=== PATIENT | male | born 1945 | race Caucasian/White ===

== ENCOUNTER 2016-11-26 05:21 | Inpatient (IN) | payer OTHER ==
[2016-11-26] MEDS ORDERED: LIDOCAINE 1% 5 ML SDV ONE (05:55)
[2016-11-26] MEDS ORDERED: ceFAZolin 2 GM/DEXTROSE 100 ML IV ONE (06:00)
[2016-11-26] MEDS ORDERED: ceFAZolin 2 GM in D5W 100 ML IV ONE (06:00)
[2016-11-26] MEDS ORDERED: fentaNYL 100 MCG/2 ML INJ IT ONE ×2 (06:00→14:00)
[2016-11-26] MEDS ORDERED: morphINE PF 5 MG/10 ML INJ IT ONE ×2 (06:00→14:00)
[2016-11-26] MEDS ORDERED: LIDOCAINE 1% 5 ML SDV ID PRN (06:39)
[2016-11-26] MEDS ORDERED: LR 1,000 ML IV ONE (06:39)
[2016-11-26] MEDS ORDERED: BUPIVACAINE 0.25% 30 ML SDV ONE (06:42)
[2016-11-26] MEDS ORDERED: BUPIVACAINE/EPI 0.25% 30 ML SDV ONE (06:42)
[2016-11-26] MEDS ORDERED: BACITRACIN 50,000 UNITS/10 ML SYR IRR ONE ×2 (06:42→11:21)
[2016-11-26] MEDS ORDERED: THROMBIN (RECOMBINANT) 5,000 UNIT VIAL TP ONE (06:42)
[2016-11-26 06:52] LABS: APTT 26.4 SEC (23.0-38.0); INR 1.15 (0.83-1.16); PROTIME(PATIENT) 14.6 SEC (12.0-15.0)
[2016-11-26] MEDS ORDERED: PROPOFOL/EMULSION 500 MG/50 ML BOTTLE IV ONE ×4 (07:04→12:31)
[2016-11-26] MEDS ORDERED: REMIFENTANIL HCL 1 MG VIAL ONE ×2 (07:04→10:42)
[2016-11-26] MEDS ORDERED: fentaNYL 250 MCG/5 ML INJ ONE (07:04)
[2016-11-26] MEDS ORDERED: LIDOCAINE 2% 5 ML SDV ONE (07:09)
[2016-11-26] MEDS ORDERED: ROCURONIUM 50 MG/5 ML VIAL ONE (07:10)
[2016-11-26] MEDS ORDERED: CITRATE DEXTROSE SOLN 500 ML BAG ONE ×2 (07:11→11:37)
[2016-11-26] MEDS ORDERED: MIDAZOLAM 2 MG/2 ML VIAL ONE (07:11)
[2016-11-26] MEDS ORDERED: PROPOFOL 200 MG/20 ML VIAL ONE (07:13)
[2016-11-26 07:26] LABS: ANION GAP 9 mEq/L (8-16); CARBON DIOXIDE 25 mEq/l (22-31); CHLORIDE 109 mEq/L (97-110); CREATININE 0.8 mg/dL (0.7-1.3); GLOMERULAR FILTRATION RATE > 60; GLUCOSE 84 mg/dL (70-100); POTASSIUM 4.3 mEq/L (3.5-5.2); SODIUM 143 mEq/L (134-144)
[2016-11-26] MEDS ORDERED: PHENYLEPHRINE 0.5% NASAL 15 ML SPRAY ONE (07:53)
[2016-11-26] MEDS ORDERED: DEXAMETHASONE 4 MG/ML VIAL ONE (08:07)
[2016-11-26 09:17] LABS: HEMATOCRIT 30.1 % (40.0-51.0); HEMOGLOBIN 10.6 g/dL (13.7-17.5)
[2016-11-26] MEDS ORDERED: PHENYLEPHRINE 10 MG/ML SDV ONE (09:21)
[2016-11-26] MEDS ORDERED: THROMBIN (RECOMBINANT) 20,000 UNIT VIAL TP ONE (10:35)
[2016-11-26] MEDS ORDERED: ceFAZolin 1 GM VIAL ONE (11:08)
[2016-11-26] MEDS ORDERED: morphINE PF 5 MG/10 ML INJ ONE (11:21)
[2016-11-26] MEDS ORDERED: fentaNYL 100 MCG/2 ML INJ ONE (11:21)
[2016-11-26] MEDS ORDERED: ONDANSETRON 4 MG/2 ML VIAL ONE (12:14)
[2016-11-26] MEDS ORDERED: ONDANSETRON 4 MG/2 ML VIAL IVP PRN (13:00)
[2016-11-26] MEDS ORDERED: DIAZEPAM 10 MG/2 ML SYR IVP PRN (13:00)
[2016-11-26] MEDS ORDERED: LACTULOSE 20 GM/30 ML UDCUP PO PRN (13:00)
[2016-11-26] MEDS ORDERED: diphenhydrAMINE 25 MG CAP PO PRN (13:00)
[2016-11-26] MEDS ORDERED: MAGNESIUM HYDROXIDE 30 ML UDCUP PO PRN (13:00)
[2016-11-26] MEDS ORDERED: NALOXONE HCL 0.4 MG/ML INJ IVP PRN (13:00)
[2016-11-26] MEDS ORDERED: DIAZEPAM 5 MG TAB PO PRN (13:00)
[2016-11-26] MEDS ORDERED: BISACODYL 10 MG SUPP PR PRN (13:00)
[2016-11-26] MEDS ORDERED: ONDANSETRON DISINTEGRATING 4 MG TAB PO PRN (13:00)
[2016-11-26] MEDS ORDERED: HYDROmorphONE/DILAUDID 6 MG/30 ML PCA IV PRN (13:00)
--- NOTE | 2016-11-26 13:05 | POSTOPPROG ---
Post Op Note Date of Operation: 11/26/16 Surgeon: Burton Hyman Medical Educator: Jaylon Anesthesiologist: Katie Anesthesia: GET(General Endotracheal) Pre-op Diagnosis: lumbar DJD/stenosis Post-op Diagnosis: same Indication: low back pain, right leg pain, weakness Procedure: L2-S1 fusion with L2/3, L5/S1 TLIF Findings: DJD/stenosis Inf/Abcess present in the surg proc area at time of surgery?: No EBL: 500-1000 (600 ml EBL) Complications: None Drains: Carrillo Moe (DAVID x 1)
--- NOTE | 2016-11-26 13:07 | SOAPPROG ---
SOAP Progress Note Assessment/Plan: Assessment: 71 yo M sp L2-S1 fusion with L2/3, L5/S1 TLIF Plan: stable PT/OT x-rays 11/27 DAVID x 1 lovenox starts 11/27 please call with neuro changes 11/26/16 13:05 Subjective: + back pain, no leg pain Objective: Laboratory Results 11/26/16 08:55 11/26/16 06:36 PT 14.6 SEC (12.0-15.0) 11/26/16 06:36 INR 1.15 (0.83-1.16) 11/26/16 06:36 awake, alert PERRL, EOMI, no facial droo 5/5 except right DF 0/5, right quads/psoas 4/5 + light touch ICD10 Worksheet Patient Problems: Problems Problem Status Diagnosed Fusion of lumbar spine Acute Cervical stenosis of spinal canal Acute - ICD10 Problem Qualifiers (1) Fusion of lumbar spine
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
[2016-11-26] MEDS: NS W/ 20 KCl/L 1,000 ML IV SCH (16:16)
[2016-11-26] MEDS: POLYETHYLENE GLYCOL 3350 17 GM PKT PO SCH ×2 (16:36→22:29)
[2016-11-26 16:50] LABS: HEMATOCRIT 30.5 % (40.0-51.0); HEMOGLOBIN 10.4 g/dL (13.7-17.5)
[2016-11-26 17:05] LABS: ANION GAP 9 mEq/L (8-16); CARBON DIOXIDE 24 mEq/l (22-31); CHLORIDE 107 mEq/L (97-110); CREATININE 0.9 mg/dL (0.7-1.3); GLOMERULAR FILTRATION RATE > 60; GLUCOSE 108 mg/dL (70-100); POTASSIUM 5.3 mEq/L (3.5-5.2); SODIUM 140 mEq/L (134-144)
--- NOTE | 2016-11-26 17:19 | DX ---
Intraoperative fluoroscopy History: Lumbar fusion surgery L2-S1 Dose = 26.5 mGy Findings: A single spot film demonstrates bilateral transpedicular screws at all levels between L2 an d S1. There is a spinous process clamp at L2-L3. Impression: Good intraoperative position of bilateral transpedicular screws.
[2016-11-26] MEDS: morphINE SR 15 MG TAB PO SCH (20:51)
[2016-11-26] MEDS: SENNOSIDES/DOCUSATE SODIUM TAB PO SCH (20:52)
[2016-11-26] MEDS: FAMOTIDINE 20 MG/NACL 50 ML IV SCH (20:52)
[2016-11-27 05:08] LABS: % IMMATURE GRANULYOCYTES 0.9 % (0.0-1.1); ABSOLUTE IMMATURE GRANULOCYTES 0.08 10^3/uL (0.00-0.10); ABSOLUTE NRBC COUNT 0.06 10^3/uL (0-0.01); ADD DIFF? NO; ADD MORPH? NO; ADD SCAN? NO; ATYPICAL LYMPHOCYTE FLAG 50 (0-99); FRAGMENT RBC FLAG 20 (0-99); HEMATOCRIT 25.8 % (40.0-51.0); HEMOGLOBIN 8.5 g/dL (13.7-17.5); LEFT SHIFT FLG 0 (0-99); LIPEMIA HEMOLYSIS FLAG 80 (0-99); MEAN CELL HEMOGLOBIN 32.9 pg (27.9-34.1); MEAN CELL HEMOGLOBIN CONCENTR. 32.9 g/dL (32.4-36.7); NRBC-AUTO% 0.7 % (0.0-0.2); PLATELET CLUMPS FLAG 10 (0-99); PLATELET COUNT 165 10^3/uL (150-400); RED BLOOD CELL COUNT 2.58 10^6/uL (4.40-6.38); RED CELL DISTRIBUTION WIDTH 18.3 % (11.5-15.2)
[2016-11-27 05:31] LABS: ANION GAP 5 mEq/L (8-16); CALCIUM 7.9 mg/dL (8.5-10.4); CARBON DIOXIDE 26 mEq/l (22-31); CHLORIDE 108 mEq/L (97-110); CREATININE 0.9 mg/dL (0.7-1.3); GLOMERULAR FILTRATION RATE > 60; GLUCOSE 100 mg/dL (70-100); POTASSIUM 4.9 mEq/L (3.5-5.2); SODIUM 139 mEq/L (134-144)
--- NOTE | 2016-11-27 08:42 | NEUSURGPN ---
Date of Surgery: 11/26/16 Post Op Day: 1 Assessment/Plan: POD#1 sp L2/3 adn L5/S1 TLIF. Chronic right DF weakness. Left DF weakness today Pain well controlled Has some mild right forearm paresthesias without associated weakness Plan: Continue DAVID drain Xrays lumbar spine today Advance activity with PT/OT LSO when out of bed DC planning Follow H/H with repeat CBC Wednesday Subjective: in bed, comfortable. no pain issues overnight. Denies new numbness, tingling or weakness Objective: NEURO: SMITH, sens +LT chronic right DF/EHL weakness - unchnaged left DF weakness4/5 Dressing: reinforced, moderate saturation DAVID: 580ml Catheter Insertion Date: 11/26/16 Neurosurgery Physical Exam - Vitals, I&O, Labs I and O 11/26/16 11/27/16 11/28/16 05:59 05:59 05:59 Intake Total 5300 Output Total 2680 Balance 2620 Weight 106.594 kg Intake: Oral (ml) 1600 IV Intake (ml) 2500 IV Infused (ml) 950 ceFAZolin 2 GM/DEXTROSE 100 100 ml @ 200 mls/hr IV ONCE ONE Rx#:[id number] ceFAZolin 1 GM/DEXTROSE 50 50 ml @ 200 mls/hr IV Q8H [facility] Rx#:[id number] Famotidine 20 mg/NaCl 50 50 ml @ 200 mls/hr IV Q12HRS [facility] Rx#:[id number] NS W/ 20 KCl/L 1,000 ml @ 750 75 mls/hr IV CONT [facility] Rx #:[id number] Autologous Blood (ml) 250 Output: Urine (ml) 1500 Catheter 1500 Estimated Blood Loss (ml) 600 Wound Drainage (ml) 580 Right Back Carrillo Moe 580 Vital Signs Temp Pulse Resp BP Pulse Ox 37 C 76 16 123/57 H 91 L 11/27/16 08:00 11/27/16 08:00 11/27/16 08:00 11/27/16 08:00 11/27/16 08:00 Laboratory Results 11/27/16 04:29 11/27/16 04:29 ICD10 Worksheet Patient Problems: Problems Problem Status Diagnosed Fusion of lumbar spine Acute Cervical stenosis of spinal canal Acute
[2016-11-27] MEDS: ENOXAPARIN 40 MG/0.4 ML SYR SC SCH (09:30)
[2016-11-27] MEDS: FAMOTIDINE 20 MG/NACL 50 ML IV SCH ×2 (09:30→21:06)
[2016-11-27] MEDS: SENNOSIDES/DOCUSATE SODIUM TAB PO SCH ×2 (09:30→21:07)
[2016-11-27] MEDS: POLYETHYLENE GLYCOL 3350 17 GM PKT PO SCH ×3 (09:30→21:31)
[2016-11-27] MEDS: morphINE SR 15 MG TAB PO SCH ×2 (10:38→21:07)
--- NOTE | 2016-11-27 15:00 | DX ---
Lumbar spine upright AP and lateral 1346 hours. History: Follow-up fusion. Findings: Pedicle screws and paraspinal rods are present from L2 through S1 with good alignment. Disk replacement material is present at L2-L3 and at L5-S1. There is bony fusion across the L3-L4 and L4- L5 disk space levels. Moderate intervertebral disk space narrowing with hypertrophic osteophytes is p resent from T10-T11 through L1-L2. There is mild anterior wedging of T11, T12, and L1 segments. This is probably chronic. There are no lytic or sclerotic osseous lesions. Drainage catheter is present ri ght posterior paraspinal soft tissues lower lumbar spine. The patient has had right hemilaminectomy a t L5 level. Impression: 1. Good alignment of pedicle screws and paraspinal rods from L2 through S1. 2. Mild anterior wedging T11, T12, and L1 segments. 3. Moderate degenerative disk disease T10-T11 through L1-L2.
[2016-11-27] MEDS: HYDROmorphONE/DILAUDID 1 MG/ML SYR IVP PRN (20:21)
[2016-11-27] MEDS: ACETAMINOPHEN 325 MG TAB PO PRN (20:25)
[2016-11-27] MEDS: METHOCARBAMOL 750 MG TAB PO PRN (20:25)
[2016-11-27] MEDS: oxyCODONE IR 5 MG TAB PO PRN (20:25)
[2016-11-28] MEDS: METHOCARBAMOL 750 MG TAB PO PRN ×3 (04:30→20:50)
[2016-11-28] MEDS: oxyCODONE IR 5 MG TAB PO PRN ×2 (04:30→15:04)
[2016-11-28] MEDS: HYDROmorphONE/DILAUDID 1 MG/ML SYR IVP PRN (04:45)
[2016-11-28 04:59] LABS: HEMATOCRIT 21.1 % (40.0-51.0); MEAN CELL HEMOGLOBIN 32.9 pg (27.9-34.1); MEAN CELL HEMOGLOBIN CONCENTR. 33.2 g/dL (32.4-36.7); MEAN CELL VOLUME 99.1 fL (81.5-99.8); RED BLOOD CELL COUNT 2.13 10^6/uL (4.40-6.38); RED CELL DISTRIBUTION WIDTH 17.5 % (11.5-15.2)
[2016-11-28] MEDS: SENNOSIDES/DOCUSATE SODIUM TAB PO SCH ×2 (08:25→20:50)
[2016-11-28] MEDS: POLYETHYLENE GLYCOL 3350 17 GM PKT PO SCH ×3 (08:26→20:50)
[2016-11-28] MEDS: FAMOTIDINE 20 MG TAB PO SCH ×2 (08:26→20:50)
[2016-11-28] MEDS: ENOXAPARIN 40 MG/0.4 ML SYR SC SCH (08:26)
[2016-11-28] MEDS: morphINE SR 15 MG TAB PO SCH ×2 (08:27→20:49)
--- NOTE | 2016-11-28 11:40 | NEUSURGPN ---
Date of Surgery: 11/27/16 Post Op Day: 1 Assessment/Plan: Assessment/Plan: POD#2 sp L2/3 adn L5/S1 TLIF. Chronic right DF weakness. mild Left DF weakness today Pain well controlled Plan: Continue DAVID drain, output 580 Xrays lumbar spine show intact hardware and good alignment Advance activity with PT/OT LSO when out of bed DC planning H/H low at 7/21, but he does not seem to be symptomatic Subjective: some moderate pain Objective: NEURO: SMITH, sens +LT chronic right DF/EHL weakness - unchnaged left DF weakness4/5 stable Catheter Insertion Date: 11/27/16 - Physician Patient Seen by DrFatmata: Allyson Neurosurgery Physical Exam - Vitals, I&O, Labs I and O 11/27/16 11/28/16 11/29/16 05:59 05:59 05:59 Intake Total 5300 1050 200 Output Total 2680 1150 50 Balance 2620 -100 150 Weight 106.594 kg Intake: Oral (ml) 1600 500 200 IV Intake (ml) 2500 IV Infused (ml) 950 550 ceFAZolin 2 GM/DEXTROSE 100 100 ml @ 200 mls/hr IV ONCE ONE Rx#:[id number] ceFAZolin 1 GM/DEXTROSE 50 50 ml @ 200 mls/hr IV Q8H [facility] Rx#:[id number] Famotidine 20 mg/NaCl 50 50 50 ml @ 200 mls/hr IV Q12HRS [facility] Rx#:[id number] NS W/ 20 KCl/L 1,000 ml @ 750 500 75 mls/hr IV CONT [facility] Rx #:[id number] Autologous Blood (ml) 250 Output: Urine (ml) 1500 900 Catheter 1500 Toilet 900 Estimated Blood Loss (ml) 600 Wound Drainage (ml) 580 250 50 Right Back Carrillo Moe 580 250 50 Other: Intake Quantity Yes Sufficient Output Comment Toilet straight cath Number of Voids Toilet 1 Number of Stools Toilet 1 Bladder Scan Volume (ml) Toilet 355 Vital Signs Temp Pulse Resp BP Pulse Ox 36.9 C 78 18 114/58 L 90 L 11/28/16 07:49 11/28/16 07:49 11/28/16 07:49 11/28/16 07:49 11/28/16 07:49 Laboratory Results 11/28/16 04:23 11/27/16 04:29 ICD10 Worksheet Patient Problems: Problems Problem Status Diagnosed Fusion of lumbar spine Acute Cervical stenosis of spinal canal Acute
[2016-11-28] MEDS: NS W/ 20 KCl/L 1,000 ML IV SCH (20:50)
[2016-11-29] MEDS: SENNOSIDES/DOCUSATE SODIUM TAB PO SCH ×2 (08:08→19:55)
[2016-11-29] MEDS: morphINE SR 15 MG TAB PO SCH ×2 (08:08→19:56)
[2016-11-29] MEDS: FAMOTIDINE 20 MG TAB PO SCH ×2 (08:09→19:56)
[2016-11-29] MEDS: ENOXAPARIN 40 MG/0.4 ML SYR SC SCH (08:09)
[2016-11-29] MEDS: POLYETHYLENE GLYCOL 3350 17 GM PKT PO SCH ×3 (08:09→20:01)
[2016-11-29] MEDS: METHOCARBAMOL 750 MG TAB PO PRN ×2 (08:09→13:40)
[2016-11-29 08:26] LABS: HEMATOCRIT 20.6 % (40.0-51.0); HEMOGLOBIN 7.1 g/dL (13.7-17.5); MEAN CELL HEMOGLOBIN 34.1 pg (27.9-34.1); MEAN CELL HEMOGLOBIN CONCENTR. 34.5 g/dL (32.4-36.7); RED BLOOD CELL COUNT 2.08 10^6/uL (4.40-6.38); RED CELL DISTRIBUTION WIDTH 17.1 % (11.5-15.2)
--- NOTE | 2016-11-29 10:30 | NEUSURGPN ---
Date of Surgery: 11/26/16 Post Op Day: 3 Assessment/Plan: Assessment/Plan: POD#3 sp L2/3 adn L5/S1 TLIF. Chronic right DF weakness. mild Left DF weakness today Pain well controlled Plan: Continue DAVID drain, output 95 Xrays lumbar spine show intact hardware and good alignment Advance activity with PT/OT LSO when out of bed DC planning for rehab H/H stable at 7.1/20.6, but he does not seem to be symptomatic Subjective: no major complaints, does have back pain Objective: AAOx3 legs full strength except chronic DF weakness sensation intact wound c/d/i Catheter Insertion Date: 11/27/16 - Physician Patient Seen by : Yenni Neurosurgery Physical Exam - Vitals, I&O, Labs I and O 11/28/16 11/29/16 11/30/16 05:59 05:59 05:59 Intake Total 1050 890 200 Output Total 1150 295 Balance -100 595 200 Intake: Oral (ml) 500 650 200 IV Infused (ml) 550 240 Famotidine 20 mg/NaCl 50 50 ml @ 200 mls/hr IV Q12HRS [facility] Rx#:[id number] NS W/ 20 KCl/L 1,000 ml @ 500 240 75 mls/hr IV CONT [facility] Rx #:[id number] Output: Urine (ml) 900 200 Toilet 900 200 Wound Drainage (ml) 250 95 Right Back Carrillo Moe 250 95 Other: Intake Quantity Yes Sufficient Output Comment Toilet straight cath Number of Voids Toilet 1 Number of Stools Toilet 1 Bladder Scan Volume (ml) Toilet 355 Vital Signs Temp Pulse Resp BP Pulse Ox 36.7 C 77 20 105/57 L 96 11/29/16 07:57 11/29/16 07:57 11/29/16 07:57 11/29/16 07:57 11/29/16 07:57 Laboratory Results 11/29/16 08:05 11/27/16 04:29 ICD10 Worksheet Patient Problems: Problems Problem Status Diagnosed Fusion of lumbar spine Acute Cervical stenosis of spinal canal Acute
[2016-11-29] MEDS: oxyCODONE IR 5 MG TAB PO PRN (13:40)
[2016-11-30] MEDS: oxyCODONE IR 5 MG TAB PO PRN ×3 (06:00→23:02)
[2016-11-30] MEDS: FAMOTIDINE 20 MG TAB PO SCH ×2 (10:15→19:35)
[2016-11-30] MEDS: ENOXAPARIN 40 MG/0.4 ML SYR SC SCH (10:15)
[2016-11-30] MEDS: SENNOSIDES/DOCUSATE SODIUM TAB PO SCH ×2 (10:16→19:35)
[2016-11-30] MEDS: morphINE SR 15 MG TAB PO SCH ×2 (10:16→19:35)
[2016-11-30] MEDS: POLYETHYLENE GLYCOL 3350 17 GM PKT PO SCH ×3 (11:15→19:36)
--- NOTE | 2016-11-30 11:27 | SOAPPROG ---
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 Objective: Vital Signs Temp Pulse Resp BP Pulse Ox 36.4 C 67 16 122/61 H 100 11/30/16 07:33 11/30/16 07:33 11/30/16 07:33 11/30/16 07:33 11/30/16 07:33 Laboratory Results 11/29/16 08:05 11/27/16 04:29 11/29/16 11/30/16 12/01/16 05:59 05:59 05:59 Intake Total 890 800 Output Total 295 365 Balance 595 435 PT 14.6 SEC (12.0-15.0) 11/26/16 06:36 INR 1.15 (0.83-1.16) 11/26/16 06:36 AAOX4, +FC PERRL, EOMI, no facial droop 5/5 except right DF 0/5 + light touch C/D/I ICD10 Worksheet Patient Problems: Problems Problem Status Diagnosed Fusion of lumbar spine Acute Cervical stenosis of spinal canal Acute - ICD10 Problem Qualifiers (1) Fusion of lumbar spine
[2016-11-30] MEDS: METHOCARBAMOL 750 MG TAB PO PRN (23:02)
[2016-11-30 23:18] VITALS: TEMP 98.2
[2016-12-01 07:39] VITALS: BP 145/76; PULSE 55; RESP 116; O2SAT 92
--- NOTE | 2016-12-01 07:46 | SOAPPROG ---
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 Objective: Vital Signs Temp Pulse Resp BP Pulse Ox 36.8 C 55 L 116 H 145/76 H 92 12/01/16 07:38 12/01/16 07:38 12/01/16 07:38 12/01/16 07:38 12/01/16 07:38 Laboratory Results 11/29/16 08:05 11/27/16 04:29 11/30/16 12/01/16 12/02/16 05:59 05:59 05:59 Intake Total 800 1000 Output Total 365 52 Balance 435 948 PT 14.6 SEC (12.0-15.0) 11/26/16 06:36 INR 1.15 (0.83-1.16) 11/26/16 06:36 AAOX4, +FC PERRL, EOMI, no facial droop 5/5 except right DF 0/5 + light touch C/D/I ICD10 Worksheet Patient Problems: Problems Problem Status Diagnosed Fusion of lumbar spine Acute Cervical stenosis of spinal canal Acute - ICD10 Problem Qualifiers (1) Fusion of lumbar spine
[2016-12-01] MEDS: POLYETHYLENE GLYCOL 3350 17 GM PKT PO SCH (08:51)
[2016-12-01] MEDS: FAMOTIDINE 20 MG TAB PO SCH (08:51)
[2016-12-01] MEDS: ENOXAPARIN 40 MG/0.4 ML SYR SC SCH (08:51)
[2016-12-01] MEDS: morphINE SR 15 MG TAB PO SCH (08:51)
[2016-12-01] MEDS: SENNOSIDES/DOCUSATE SODIUM TAB PO SCH (08:51)
[2016-12-01 08:53] LABS: HEMATOCRIT 21.9 % (40.0-51.0); HEMOGLOBIN 7.6 g/dL (13.7-17.5)
[2016-12-01] MEDS: ACETAMINOPHEN 325 MG TAB PO PRN (12:26)
[2016-12-01] MEDS: oxyCODONE IR 5 MG TAB PO PRN (12:30)
--- NOTE | 2016-12-01 13:41 | PDIAF ---
- Diagnosis Code Status: Full Code - Medication Management Discharge Medications: Medications to Continue on Transfer Acetaminophen [Tylenol 325mg (*)] 325 - 650 mg PO Q4HRS PRN #0 tab 12/01/16 [ Last Taken Unknown] Enoxaparin [Lovenox 40 MG (*)] 40 mg SC DAILY #0 syr 12/01/16 [Last Taken Unknown] Methocarbamol [Robaxin 750 mg (*)] 750 mg PO QID PRN #0 tab 12/01/16 [Last Taken Unknown] morphINE SR [Ms Contin/Oramorph 15 mg (*)] 15 mg PO BID #0 tab 12/01/16 [Last Taken Unknown] oxyCODONE IR [Oxycodone Ir (*)] 5 mg PO Q3HRS PRN #0 tab 12/01/16 [Last Taken Unknown] Discharge Medications: Refer to the Discharge Home Medication list for PRN reason. - Orders Services needed: Physical Therapy, Occupational Therapy Diet Recommendation: no restrictions on diet Diet Texture: Regular Texture Diet Equipment: LSO brace when out of bed for 8 weeks - Follow Up Care Current Providers and Referrals: [place] STATE,. [Primary Care Provider] -
--- NOTE | 2016-12-09 14:15 | GDS ---
[f rep st] DISCHARGE SUMMARY ADMISSION DIAGNOSIS: Lumbar degenerative joint disease. DISCHARGE DIAGNOSIS: Status post L2-S1 fusion with an L2-3 and L5-S1 transforaminal lumbar interbody fusion. HISTORY AND PHYSICAL: Please see admission history and physical. COURSE: Patient is a 71-year-old male, who presented with low back pain, right leg pain and weakness . The patient had previous lumbar surgery. He was taken to the operating room on 11/26/2016, where he underwent an L2-S1 posterior instrumentation and fusion with an L2-3 and L5-S1 transforaminal lumb ar interbody fusion. There were no intraoperative complications, and he was admitted to the floor fo r observation. On the floor, he was tolerating a regular diet and his pain was controlled with p.o. pain medications. The patient was discharged to inpatient rehab on 12/01/2016. Patient was discharg ed with lumbar fusion instructions and recommended he return for a neurosurgical followup appointment in approximately 1-2 weeks. /[id number]/MODL
== END 2016-12-01 16:38 | DRG 460 ==
LOC: F3N 05:21
PROVIDERS: ADMIT Neurological Surgery; ATTEND Neurological Surgery
PROC: 01NR0ZZ Release Sacral Nerve, Open Approach (ICD-10-PCS; principal; 2016-11-26 07:15)
PROC: 0SG30J1 Fusion of Lumbosacral Joint with Synthetic Substitute, Posterior Approach, Posterior Column, Open Approach (ICD-10-PCS; principal; 2016-11-26 07:15)
PROC: 3E0U0GB Introduction of Recombinant Bone Morphogenetic Protein into Joints, Open Approach (ICD-10-PCS; principal; 2016-11-26 07:15)
PROC: 0SG30AJ Fusion of Lumbosacral Joint with Interbody Fusion Device, Posterior Approach, Anterior Column, Open Approach (ICD-10-PCS; principal; 2016-11-26 07:15)
PROC: 0SG10AJ Fusion of 2 or more Lumbar Vertebral Joints with Interbody Fusion Device, Posterior Approach, Anterior Column, Open Approach (ICD-10-PCS; principal; 2016-11-26 07:15)
PROC: 0SG10J1 Fusion of 2 or more Lumbar Vertebral Joints with Synthetic Substitute, Posterior Approach, Posterior Column, Open Approach (ICD-10-PCS; principal; 2016-11-26 07:15)
PROC: 00NY0ZZ Release Lumbar Spinal Cord, Open Approach (ICD-10-PCS; principal; 2016-11-26 07:15)
DX: M47.27 Other spondylosis with radiculopathy, lumbosacral region (principal)
CPT/HCPCS: 86905-90; 97116-GP; 97161-GP; 97165-GO; 97530-GP; 97535-GO; C1713; J0690; J1100; J1170; J1650; J2250; J2274; J2370; J2405; J2704; J3010; J7060; P9016

== ENCOUNTER 2016-12-09 16:00 | Inpatient (IN) | payer OTHER ==
--- NOTE | 2016-12-09 17:16 | GHP ---
[f rep st] PREOP HISTORY AND PHYSICAL DATE OF ADMISSION: 12/09/2016 CHIEF COMPLAINT: Purulent drainage from lumbar incision. HISTORY OF PRESENT ILLNESS: The patient is a pleasant 71-year-old male, who underwent an L3 through L5 exploration of fusion with right-sided L2-3 and L5- S1 far lateral decompression, followed by an L2 through S1 instrumentation and fusion with L2-3 and L5-S1 transforaminal lumbar interbody fusions on November. Postoperatively, the patient was transferred to [facility] where he was maintained until earlier today, when we were contacted by the staff at [facility] who reported he was having drainage from his incision. The patient was immediately transported from [facility] to our clinic today for evaluation. In clinic, the patient was found to have purulent drainage from his incision. This was cultured and sent for Gram stain and culture to the [facility] lab. The patient states that he is not having any worsening back or leg pain, however he has not been feeling well for the past few days and reports that his incision has been draining for 2 or 3 days. Currently, the patient reports fevers and chills and is shaking from chills currently in clinic. He denies any bowel or bladder issues or any lower extremity weakness. ALLERGIES: Etomidate. CURRENT MEDICATIONS: 1. Dulcolax suppository 10 mg rectal daily. 2. Polyethylene glycol 17 g p.o. as needed. 3. Morphine 15 mg tablets p.o. twice daily. 4. Methocarbamol 750 mg 1 tablet 4 times a day. 5. Oxycodone 5 mg, 1 every 3 hours as needed for pain. 6. Iron 325 mg once daily. 7. Vitamin C 500 mg daily. 8. Zofran 4 mg tablets every 4 hours as needed for nausea. 9. Mi-acid 200 mg/200 mg/20 mg/per 5 mL oral suspension 4 times a day. 10. Tylenol 500 mg 3 times a day. 11. Prilosec 20 mg daily. 12. Lovenox 40 mg subcu daily at 8:00 a.m. SOCIAL HISTORY: The patient is an ex-cigarette smoker. He does not drink alcohol. The patient lives in [place], [place]. REVIEW OF SYSTEMS: CONSTITUTIONAL: Positive for chills, rigors, fatigue, fever and malaise. GI: Positive for nausea. Negative for bowel or bladder incontinence. He has not had any chest pain. Otherwise negative other than what is mentioned in the HPI. NEUROLOGIC EXAM: Patient is awake, alert, oriented x4. Cranial nerves 2-12 are intact to gross examination speech is fluent. He has a 45-year history of right iliopsoas weakness and foot drop. He has 5/5 strength in his bilateral upper and left lower extremity otherwise, but has a difficult time standing on his toes bilaterally or on his heels bilaterally due to generalized weakness. Sensation is grossly intact to light touch in the bilateral lower extremities and upper extremities. VITAL SIGNS: Temperature is 98.8, blood pressure is 144/ 65, heart rate is 94. IMPRESSION: The patient is a pleasant 71-year-old gentleman who is 13 days status post L2-S1 fusion with postop wound infection and purulent drainage from his incision. The patient remains neurologically stable with no worsening weakness, tingling or worsening back or leg pain. PLAN: All the above were discussed with the patient in detail today. The patient was seen and examined by Dr. Hyman. At this time, the patient will be direct admitted from our clinic to the hospital. The OR has been notified and the patient will undergo a lumbar wound I and D tonight at approximately 6:00 p.m. Risks and benefits of the surgical procedure were discussed with the patient in detail and any questions were answered to the patient's satisfaction today in clinic. The patient does consent to proceed with a lumbar wound incision and drainage procedure. /[id number]/MODL MTDD
[2016-12-09] MEDS ORDERED: THROMBIN (RECOMBINANT) 5,000 UNIT VIAL TP ONE (17:28)
[2016-12-09] MEDS ORDERED: BUPIVACAINE/EPI 0.25% 30 ML SDV ONE (17:29)
[2016-12-09] MEDS ORDERED: AVITENE POWDER 1 GM JAR TP ONE (17:29)
[2016-12-09] MEDS ORDERED: BUPIVACAINE 0.25% 30 ML SDV ONE (17:29)
[2016-12-09] MEDS ORDERED: ceFAZolin 2 GM/DEXTROSE 100 ML IV ONE (17:30)
[2016-12-09] MEDS ORDERED: VANCOMYCIN 1.5 GM in D5W 250 ML IV ONE (17:30)
[2016-12-09] MEDS ORDERED: BACITRACIN 50,000 UNITS/10 ML SYR IRR ONE (17:30)
[2016-12-09] MEDS ORDERED: MIDAZOLAM 2 MG/2 ML VIAL ONE (17:43)
[2016-12-09] MEDS ORDERED: CEFAZOLIN 2 GM/DEXTROSE/100 ML BAG IV ONE (17:44)
[2016-12-09] MEDS ORDERED: fentaNYL 100 MCG/2 ML INJ ONE ×3 (17:44→19:01)
[2016-12-09] MEDS ORDERED: PROPOFOL 200 MG/20 ML VIAL ONE (17:45)
[2016-12-09] MEDS ORDERED: METOCLOPRAMIDE 10 MG/2 ML VIAL ONE (17:45)
[2016-12-09] MEDS ORDERED: LIDOCAINE 2% 100 MG/5 ML SYR IVP ONE (17:45)
[2016-12-09] MEDS ORDERED: ROCURONIUM 50 MG/5 ML VIAL ONE (17:45)
[2016-12-09 17:49] LABS: % IMMATURE GRANULYOCYTES 0.7 % (0.0-1.1); ABSOLUTE IMMATURE GRANULOCYTES 0.08 10^3/uL (0.00-0.10); ABSOLUTE NRBC COUNT 0.04 10^3/uL (0-0.01); ADD DIFF? NO; ADD MORPH? NO; ADD SCAN? NO; ATYPICAL LYMPHOCYTE FLAG 0 (0-99); FRAGMENT RBC FLAG 10 (0-99); HEMATOCRIT 22.7 % (40.0-51.0); HEMOGLOBIN 7.5 g/dL (13.7-17.5); LEFT SHIFT FLG 0 (0-99); LIPEMIA HEMOLYSIS FLAG 80 (0-99); MEAN CELL HEMOGLOBIN 33.2 pg (27.9-34.1); MEAN CELL VOLUME 100.4 fL (81.5-99.8); MEAN PLATELET VOLUME 9.2 fL (8.7-11.7); NRBC-AUTO% 0.4 % (0.0-0.2); PLATELET CLUMPS FLAG 10 (0-99); PLATELET COUNT 364 10^3/uL (150-400); RED BLOOD CELL COUNT 2.26 10^6/uL (4.40-6.38); RED CELL DISTRIBUTION WIDTH 18.4 % (11.5-15.2)
[2016-12-09 17:51] LABS: INR 1.39 (0.83-1.16)
[2016-12-09] MEDS ORDERED: VANCOMYCIN 1 GM VIAL IV ONE (18:35)
[2016-12-09] MEDS ORDERED: SUGAMMADEX SODIUM 200 MG/2 ML VIAL IVP ONE (18:45)
[2016-12-09] MEDS ORDERED: ERTAPENEM 1 GM in NS 100 ML IV ONE (19:00)
[2016-12-09] MEDS ORDERED: MAGNESIUM HYDROXIDE 30 ML UDCUP PO PRN (19:12)
[2016-12-09] MEDS ORDERED: LACTULOSE 20 GM/30 ML UDCUP PO PRN (19:12)
[2016-12-09] MEDS ORDERED: BISACODYL 10 MG SUPP PR PRN (19:12)
[2016-12-09] MEDS ORDERED: diphenhydrAMINE 25 MG CAP PO PRN (19:12)
[2016-12-09] MEDS ORDERED: DIAZEPAM 5 MG TAB PO PRN (19:12)
[2016-12-09] MEDS ORDERED: ONDANSETRON 4 MG/2 ML VIAL IVP PRN (19:12)
[2016-12-09] MEDS ORDERED: DIAZEPAM 10 MG/2 ML SYR IVP PRN (19:12)
[2016-12-09] MEDS ORDERED: POLYETHYLENE GLYCOL 3350 17 GM PKT PO PRN (19:12)
[2016-12-09 19:23] LABS: SEDIMENTATION RATE 82 MM/HR (0-20)
--- NOTE | 2016-12-09 19:23 | POSTOPPROG ---
Post Op Note Date of Operation: 12/09/16 Surgeon: Mandi Singer Produce Inspector: Mandi Singer PA-C Anesthesiologist: Blaise Anesthesia: GET(General Endotracheal) Pre-op Diagnosis: Wound infection postop Post-op Diagnosis: same Procedure: Lumbar wound infection incision and drainage Inf/Abcess present in the surg proc area at time of surgery?: Yes Depth: Organ Space Drains: Carrillo Moe (2) SOAP Progress Note Assessment/Plan: Assessment: Plan: S: Patient waking up in PACU with expected incisional site pain O: NAD, VSS CN II-XII grossly intact PERRL, EOMI BLE 5/5 except for bilateral DF weakness that has been there for years Incision- c/d/i- DAVID X 2- to full suction A/P 71 yo male s/p L2-S1 fusion last week, now with wound infection s/p wound I& D. -blood cultures pending -Cultures from wound taken intraop prior to abx starting- pending -optimized pain management -ID consult pending tomorrow -No bending, lifting, twisting more than 5-10 pounds -Brace when OOB -DAVID to suction and will leave in until 0 output 12/09/16 19:24 12/09/16 19:28 Objective: Vital Signs Temp Pulse Resp BP Pulse Ox 96 16 126/55 H 90 L 12/09/16 17:16 12/09/16 17:16 12/09/16 17:16 12/09/16 17:16 Microbiology 12/09/16 16:42 Gram Stain - Final Back - Swab Laboratory Results 12/09/16 17:25 PT 17.0 SEC (12.0-15.0) H 12/09/16 17:25 INR 1.39 (0.83-1.16) H 12/09/16 17:25
[2016-12-09 20:06] LABS: ANION GAP 13 mEq/L (8-16); CALCIUM 8.8 mg/dL (8.5-10.4); CARBON DIOXIDE 21 mEq/l (22-31); CHLORIDE 99 mEq/L (97-110); CREATININE 0.9 mg/dL (0.7-1.3); GLOMERULAR FILTRATION RATE > 60; GLUCOSE 93 mg/dL (70-100); POTASSIUM 4.5 mEq/L (3.5-5.2); SODIUM 133 mEq/L (134-144)
--- NOTE | 2016-12-09 20:07 | GOP ---
[f rep st] OPERATIVE REPORT DATE OF OPERATION: 12/09/2016 SURGEON: Burton Hyman MD CORE STACKER: Mandi Singer. PREOPERATIVE DIAGNOSIS: Postoperative deep lumbar wound infection. POSTOPERATIVE DIAGNOSIS: Postoperative deep lumbar wound infection. PROCEDURE PERFORMED: Incision and drainage of complex postoperative lumbar wound infection. FINDINGS: ESTIMATED BLOOD LOSS: Trace. INDICATIONS: The patient is a 71-year-old man who is about 1-2 weeks out from a lumbosacral spine garcia rgery with instrumentation who reportedly had drainage from his incision at rehab. Upon hearing of t his, I transported him immediately over to our clinic where his wound appeared to be infected with se rosanguineous drainage. He was taken to the operating room urgently for incision and drainage and de bridement. DESCRIPTION OF PROCEDURE: After informed consent was obtained, patient was taken to the operating ro om and placed in the prone position on the [place] frame. The lumbosacral area was prepped and draped in a sterile fashion and the prior incision carefully opened with suture scissors in the subcutaneou s Vicryl sutures. These were all removed and there was quite a bit of serosanguineous fluid that tra cked deep to the fascia. The fascia was mostly intact, and the fluid collection was mostly superfici al, but it did track deep and the fascia was therefore opened in its entirety and copiously irrigated with antibiotic irrigation and extensively debrided with curettes down to healthy looking tissue thr oughout the wound. Following this, bilateral drains were placed, 1 g of vancomycin powder was sprink led throughout the wound which was then closed in a layered fashion using interrupted and running Antolin ryl sutures in the fascia, followed by vertical running nylon sutures in the skin. COMPLICATIONS: None. DISPOSITION: The patient is currently in the process of being repositioned for extubation. /[id number]/MODL
[2016-12-09 20:25] LABS: C-REACTIVE PROTEIN 230.3 mg/L (<10.0)
[2016-12-09] MEDS: SENNOSIDES/DOCUSATE SODIUM TAB PO SCH (20:37)
[2016-12-09] MEDS: morphINE SR 15 MG TAB PO SCH (20:37)
[2016-12-09] MEDS: NS W/ 20 KCl/L 1,000 ML IV SCH (20:38)
[2016-12-09] MEDS: ACETAMINOPHEN 325 MG TAB PO SCH (21:33)
[2016-12-09] MEDS: ONDANSETRON DISINTEGRATING 4 MG TAB PO PRN (21:33)
[2016-12-09] MEDS: oxyCODONE IR 5 MG TAB PO PRN (22:07)
[2016-12-09] MEDS: METHOCARBAMOL 750 MG TAB PO PRN (22:07)
[2016-12-10] MEDS: oxyCODONE IR 5 MG TAB PO PRN ×4 (02:17→19:43)
[2016-12-10] MEDS: ONDANSETRON DISINTEGRATING 4 MG TAB PO PRN (02:17)
[2016-12-10 05:01] LABS: % IMMATURE GRANULYOCYTES 1.3 % (0.0-1.1); ABSOLUTE IMMATURE GRANULOCYTES 0.11 10^3/uL (0.00-0.10); ABSOLUTE NRBC COUNT 0.02 10^3/uL (0-0.01); ADD DIFF? NO; ADD MORPH? YES; ADD SCAN? NO; ATYPICAL LYMPHOCYTE FLAG 0 (0-99); FRAGMENT RBC FLAG 10 (0-99); HEMATOCRIT 18.7 % (40.0-51.0); LEFT SHIFT FLG 10 (0-99); LIPEMIA HEMOLYSIS FLAG 80 (0-99); MEAN CELL HEMOGLOBIN CONCENTR. 32.6 g/dL (32.4-36.7); MEAN CELL VOLUME 101.1 fL (81.5-99.8); MEAN PLATELET VOLUME 9.2 fL (8.7-11.7); NRBC-AUTO% 0.2 % (0.0-0.2); PLATELET CLUMPS FLAG 10 (0-99); PLATELET COUNT 301 10^3/uL (150-400); RED BLOOD CELL COUNT 1.85 10^6/uL (4.40-6.38); RED CELL DISTRIBUTION WIDTH 18.2 % (11.5-15.2)
[2016-12-10 05:24] LABS: HEMOGLOBIN 6.1 g/dL (13.7-17.5)
[2016-12-10] MEDS: METHOCARBAMOL 750 MG TAB PO PRN ×2 (05:31→19:43)
[2016-12-10 05:59] LABS: HYPOCHROMIA 1+; MACROCYTES 1+; MICROCYTES 2+; PLATELET ESTIMATE ADEQUATE (ADEQ); TARGET CELLS 1+
[2016-12-10] MEDS ORDERED: VANCOMYCIN 1.5 GM in D5W 250 ML IV SCH (06:00)
--- NOTE | 2016-12-10 07:10 | SOAPPROG ---
SOAP Progress Note Assessment/Plan: Assessment:71 yo M POD #1 washout of lumbar wound Plan: stable gram + cocci bacteremia, on vanco/ertaprenem, ID to see today anemia, chronic but will transfuse for hg/hct of 04/18. DAVID x 2 PT/OT scd/violette/lovenox for dvt prophylaxis please call with neuro changes patient seen by Dr Gomez 12/10/16 07:08 Subjective: some back pain, no leg pain. Objective: Vital Signs Temp Pulse Resp BP Pulse Ox 36.6 C 63 18 117/62 99 12/10/16 04:54 12/10/16 04:54 12/10/16 04:54 12/10/16 04:54 12/10/16 04:54 Microbiology 12/09/16 18:40 Gram Stain - Final Back - Eswab 12/09/16 16:42 Gram Stain - Final Back - Swab Laboratory Results 12/10/16 04:40 12/09/16 17:25 12/09/16 12/10/16 12/11/16 05:59 05:59 05:59 Intake Total 3140 Output Total 845 Balance 2295 PT 17.0 SEC (12.0-15.0) H 12/09/16 17:25 INR 1.39 (0.83-1.16) H 12/09/16 17:25 AAOx4, +FC PERRL, EOMI, no facial droop 5/5 except right Df 0/5, psoas 4-/5 both chronic + light touch drainage from bottom of incision ICD10 Worksheet Patient Problems: Problems Problem Status Diagnosed Cervical stenosis of spinal canal Acute Fusion of lumbar spine Acute
[2016-12-10] MEDS ORDERED: ERTAPENEM 1 GM in NS 100 ML IV SCH (09:00)
[2016-12-10] MEDS: morphINE SR 15 MG TAB PO SCH ×2 (09:29→23:00)
[2016-12-10] MEDS: PANTOPRAZOLE SODIUM 40 MG TAB PO SCH (09:29)
[2016-12-10] MEDS: ACETAMINOPHEN 325 MG TAB PO SCH ×3 (09:30→20:43)
[2016-12-10] MEDS: SENNOSIDES/DOCUSATE SODIUM TAB PO SCH ×2 (09:30→23:00)
[2016-12-10] MEDS: ENOXAPARIN 40 MG/0.4 ML SYR SC SCH (09:30)
[2016-12-10] MEDS: NS W/ 20 KCl/L 1,000 ML IV SCH (15:34)
--- NOTE | 2016-12-10 19:37 | GCON ---
[f rep st] CONSULTATION INPATIENT INFECTIOUS DISEASE CONSULTATION. REFERRING PHYSICIAN: Burton Hyman MD REASON FOR CONSULTATION: Postoperative infection lumbar spine. HISTORY OF PRESENT ILLNESS: Patient is a 71-year-old male, who underwent an L3-L5 exploration of a f usion with right-sided L2-L3 and L5-S1 far lateral decompression, followed by an L2 through S1 instru mentation fusion with an L2-L3 and L5-S1 transforaminal lumbar interbody fusion on November 26, 2016. The patient was recovering in [facility] when the staff noticed that he was having significant drainage from his lumbar incision. He came back to [facility] on 12/09/2016 and was ta madisyn back to the operating room. The patient also reported fevers and chills upon transfer. Intraoperatively, purulence and infection were noted in the tissue levels and tract deep to the fasci a. The fascia was opened and the area was copiously irrigated and debrided down to healthy-looking t issue. Drains were placed. Vancomycin powder was applied and the patient was closed. Patient was e mpirically started on vancomycin and ertapenem postoperatively. Postoperative cultures are growing m ethicillin-sensitive Staph aureus. We are consulted to help guide treatment. The patient is sitting up in his hospital bed. He denies any fevers or chills presently. Feeling somewhat better after hi s washout. PAST MEDICAL HISTORY: 1. Spondylitic myelopathy. 2. Chronic constipation. 3. Gastroesophageal reflux disease. PAST SURGICAL HISTORY: Multiple back surgeries, total of 9. MEDICATIONS: 1. Vancomycin. 2. Ertapenem. ALLERGIES: Patient is allergic to etomidate. SOCIAL HISTORY: Patient lives on the [facility] [place]. He renan es independently. He has a supportive family but they are located in various cities around [place]. His daughter from [place] is in the room currently. No significant tobacco, alcohol, or drug use noted. FAMILY HISTORY: Reviewed but noncontributory. REVIEW OF SYSTEMS: Other than that detailed above in history of present illness, comprehensive 10-sy stem review is negative. PHYSICAL EXAMINATION: VITAL SIGNS: Temperature maximum is 37.0, temperature current is 37.0, heart rate is 86, respiratory rate is 16, blood pressure is 120/85. GENERAL: The patient is a well-formed , well-nourished older male in no acute distress. He is not toxic in appearance. He is alert and or iented x3. He is in a pleasant demeanor. HEENT: Normocephalic for age. Atraumatic. No scleral ic terus. No oral lesion. No drainage from the nares. EYES: Lids and conjunctivae within normal limi ts. Pupils are equal and round bilaterally. NECK: Supple without meningismus. LUNGS: Clear to au scultation bilaterally with good effort. HEART: Regular rate and rhythm. No murmur, rub, or gallop noted. No significant peripheral edema. SKIN: Warm and dry to the touch. No rash noted. Operati ve wound in the lumbar area midline drain emerging from with serosanguineous discharge. MUSCULOSKELE GUERLINE: No muscle belly tenderness is noted. No joint line effusion or arthritis is seen. NEUROLOGIC: Cranial nerves 2-12 seem to be intact. Peripheral sensation seems intact in the extremities. LABORATORY DATA: Patient has a CBC dated 12/10/2016 that shows a white blood cell count of 8.5, hemo globin 6.1, hematocrit of 18.7, platelet count of 301. Differential left-shifted with 81% segmented neutrophils. Serum chemistries on 12/09/2016 shows sodium 133, potassium 4.5, chloride of 99, bicarb jayden 21, BUN of 22, creatinine of 0.9. C-reactive protein is elevated at 230.3. Microbiologic data: The patient has blood cultures dated 12/09/2016 which are positive for methicill in-sensitive Staph aureus. The patient has operative back swabs dated 12/09/2016 which are also posi tive for his methicillin-sensitive Staph aureus. ASSESSMENT: Postoperative infection lumbar spine and bacteremia, both due to methicillin-sensitive S taph aureus. We will treat the patient with cefazolin monotherapy 2 grams IV q.8 hours. Will follow up tomorrow with repeat blood cultures to see if we have effected clearance after surgical washout a nd antibiotic therapy. Discussed with patient and daughter the plan of having him with 8 weeks of in travenous antibiotic therapy directed toward Staph aureus from surgery. The patient will get a PICC line placed once we are confident that the bacteremia has been cleared. We will manage him on the [facility] with followup here periodically when he returns for postoperative followup but intervenin g followup with an infectious disease specialist in [place]. I suspect the patient will likel y need oral suppressive therapy. Following completion of his 8-week course. PLAN: 1. Discontinue vancomycin and ertapenem. 2. Start cefazolin 2 grams IV q.8 hours. 3. Repeat blood cultures tomorrow. 4. Follow up clinical course. /[id number]/MODL
[2016-12-10] MEDS ORDERED: ceFAZolin 2 GM/DEXTROSE 100 ML IV SCH (22:00)
[2016-12-10] MEDS: ceFAZolin 2 GM in D5W 100 ML IV SCH (23:00)
[2016-12-11] MEDS: oxyCODONE IR 5 MG TAB PO PRN ×3 (02:04→16:45)
[2016-12-11] MEDS: ceFAZolin 2 GM in D5W 100 ML IV SCH ×3 (05:21→21:54)
[2016-12-11] MEDS: METHOCARBAMOL 750 MG TAB PO PRN ×2 (05:24→16:45)
[2016-12-11] MEDS: morphINE SR 15 MG TAB PO SCH ×2 (07:47→21:19)
[2016-12-11] MEDS: ACETAMINOPHEN 325 MG TAB PO SCH ×3 (08:05→21:54)
[2016-12-11] MEDS: SENNOSIDES/DOCUSATE SODIUM TAB PO SCH ×2 (08:06→21:18)
[2016-12-11] MEDS: PANTOPRAZOLE SODIUM 40 MG TAB PO SCH (08:06)
[2016-12-11 08:27] LABS: HEMATOCRIT 23.1 % (40.0-51.0); HEMOGLOBIN 7.6 g/dL (13.7-17.5); MEAN CELL HEMOGLOBIN 32.3 pg (27.9-34.1); MEAN CELL HEMOGLOBIN CONCENTR. 32.9 g/dL (32.4-36.7); MEAN CELL VOLUME 98.3 fL (81.5-99.8); RED BLOOD CELL COUNT 2.35 10^6/uL (4.40-6.38)
--- NOTE | 2016-12-11 09:46 | NEUSURGPN ---
Date of Surgery: 12/09/16 Post Op Day: 2 Assessment/Plan: 71 yo male POD 2 s/p wound I&D: MSSA Bacteremia Neuro intact with longstanding right iliopsoas weakness and foot drop Transfused yesterday. Plan: will repeat CBC today to check crit. PICC line today Abx per ID DC planning Discussed with PT/OT as tolerated Subjective: lying in bed. states pain is well controlled. feeling better overall denies new numbness tingling or weakness Objective: Neuro: alert and oriented SMITH, SEns +LT RIght foot drop 2/5 right iliopsoas Blood cults: S. Aureus Dressing: Saturated with DAVID drainage due to drain bulb leak DAVID on right side was fixed and working well now DAVID on left working well also no accurate drainage amount due to neither one working overnight. - Physician Discussed Patient with : [facility] Physical Exam - Vitals, I&O, Labs I and O 12/10/16 12/11/16 12/12/16 05:59 05:59 05:59 Intake Total 3140 5150 Output Total 845 1725 Balance 2295 3425 Weight 102.512 kg Intake: Oral (ml) 1770 2500 IV Intake (ml) 600 IV Infused (ml) 770 1800 Ertapenem 1 gm In Ns 100 100 ml @ 200 mls/hr IV DAILY [facility] Rx#:[id number] NS W/ 20 KCl/L 1,000 ml @ 520 1500 75 mls/hr IV CONT [facility] Rx #:[id number] Vancomycin 1.5 gm In D5w 250 250 ml @ 166.667 mls/hr IV Q12H [facility] Rx#: [id number] ceFAZolin 2 GM/DEXTROSE 200 100 ml @ 200 mls/hr IV Q8HRS [facility] Rx#:[id number] Packed Red Blood Cells ( 850 ml) Output: Urine (ml) 750 975 Urinal 750 975 Estimated Blood Loss (ml) 25 Wound Drainage (ml) 70 750 Right Back Carrillo Moe 50 450 Left Back Carrillo Moe 20 300 Other: Intake Quantity Yes Sufficient Number of Voids Urinal 1 1 Microbiology 12/09/16 17:25 Blood Panel (PCR) - Final Blood S.aureus Methicillin Suscept. 12/09/16 18:40 Gram Stain - Final Back - Eswab 12/09/16 16:42 Gram Stain - Final Back - Swab Vital Signs Temp Pulse Resp BP Pulse Ox 37 C 74 16 146/77 H 97 12/11/16 07:42 12/11/16 07:42 12/11/16 07:42 12/11/16 07:42 12/11/16 07:42 Laboratory Results 12/11/16 07:45 12/09/16 17:25 ICD10 Worksheet Patient Problems: Problems Problem Status Diagnosed Cervical stenosis of spinal canal Acute Fusion of lumbar spine Acute
--- NOTE | 2016-12-11 10:01 | PCMIDPN ---
Assessment/Plan: 1. Postoperative back infection with bacteremia secondary to MSSA: Repeat blood cultures are pending. Continues to have some serous drainage from the mid pole of the incision; hopefully will not have to go back to the operating room for repeat washout. Continue Ancef as is. Hopefully he can have a PICC line placed on Wednesday. Check complete metabolic panel on antibiotics. All questions answered today. The patient understands he will need 8 weeks of IV antibiotics, and then suppressive oral therapy likely for the rest of his life given presence of hardware. Subjective: Pain is reasonably controlled. Constipated. Has questions about hospital course moving forward. Objective: Ancef 2 g IV q.8 hours day 1 (antibiotics day 2) T-max 37degrees Vital Signs Temp Pulse Resp BP Pulse Ox 37 C 74 16 146/77 H 97 12/11/16 07:42 12/11/16 07:42 12/11/16 07:42 12/11/16 07:42 12/11/16 07:42 Microbiology 12/09/16 17:25 Blood Panel (PCR) - Final Blood S.aureus Methicillin Suscept. 12/09/16 18:40 Gram Stain - Final Back - Eswab 12/09/16 16:42 Gram Stain - Final Back - Swab Laboratory Results 12/11/16 07:45 12/09/16 17:25 12/10/16 12/11/16 12/12/16 05:59 05:59 05:59 Intake Total 3140 5150 Output Total 845 1725 Balance 2295 3425 ESR 82 MM/HR (0-20) H 12/09/16 17:25 C-Reactive Protein 230.3 mg/L (<10.0) H 12/09/16 17:25 Blood cultures with MSSA Repeat blood cultures pending Back specimens with MSSA - Physical Exam General Appearance: alert, no apparent distress EENT: pharynx normal, No scleral icterus Respiratory: lungs clear Cardiac/Chest: regular rate, rhythm, No systolic murmur Back: other (Bandage removed. Has some mild to moderate amount of serous drainage from the mid pole of the incision. The incision has appropriate stephani- incisional pinkness. No erythema or tenderness.) Skin: No rash, No embolic lesions ICD10 Worksheet Patient Problems: Problems Problem Status Diagnosed Cervical stenosis of spinal canal Acute Fusion of lumbar spine Acute
[2016-12-11] MEDS: HYDROCODONE/APAP 10/325 TAB PO PRN ×2 (10:27→19:35)
[2016-12-11] MEDS: ENOXAPARIN 40 MG/0.4 ML SYR SC SCH (10:27)
[2016-12-11] MEDS: NS W/ 20 KCl/L 1,000 ML IV SCH (15:43)
[2016-12-12] MEDS: METHOCARBAMOL 750 MG TAB PO PRN ×3 (05:10→18:13)
[2016-12-12] MEDS: HYDROCODONE/APAP 10/325 TAB PO PRN ×6 (05:10→21:13)
[2016-12-12] MEDS: ceFAZolin 2 GM in D5W 100 ML IV SCH ×3 (05:10→21:14)
[2016-12-12 06:03] LABS: ALANINE AMINOTRANSFERASE 36 IU/L (21-72); ALBUMIN 2.8 g/dL (3.5-5.0); ALKALINE PHOSPHATASE 114 IU/L (38-126); ANION GAP 8 mEq/L (8-16); ASPARTATE AMINOTRANSFERASE 32 IU/L (17-59); BILIRUBIN,TOTAL 1.2 mg/dL (0.1-1.4); CALCIUM 8.2 mg/dL (8.5-10.4); CARBON DIOXIDE 24 mEq/l (22-31); CHLORIDE 104 mEq/L (97-110); CREATININE 0.6 mg/dL (0.7-1.3); GLOMERULAR FILTRATION RATE > 60; GLUCOSE 100 mg/dL (70-100); POTASSIUM 5.2 mEq/L (3.5-5.2); SODIUM 136 mEq/L (134-144); TOTAL PROTEIN 5.2 g/dL (6.3-8.2)
[2016-12-12] MEDS: ENOXAPARIN 40 MG/0.4 ML SYR SC SCH (08:58)
[2016-12-12] MEDS: PANTOPRAZOLE SODIUM 40 MG TAB PO SCH (08:59)
[2016-12-12] MEDS: SENNOSIDES/DOCUSATE SODIUM TAB PO SCH ×2 (08:59→21:14)
[2016-12-12] MEDS: morphINE SR 15 MG TAB PO SCH ×2 (08:59→21:13)
[2016-12-12] MEDS: ACETAMINOPHEN 325 MG TAB PO SCH (09:07)
[2016-12-12 10:47] LABS: HEMATOCRIT 27.4 % (40.0-51.0); MEAN CELL HEMOGLOBIN 31.6 pg (27.9-34.1); MEAN CELL HEMOGLOBIN CONCENTR. 32.8 g/dL (32.4-36.7); MEAN CELL VOLUME 96.1 fL (81.5-99.8); RED BLOOD CELL COUNT 2.85 10^6/uL (4.40-6.38); RED CELL DISTRIBUTION WIDTH 17.5 % (11.5-15.2)
--- NOTE | 2016-12-12 10:52 | NEUSURGPN ---
Date of Surgery: 12/09/16 Post Op Day: 3 Assessment/Plan: 71 yo male POD 2 s/p wound I&D: MSSA Bacteremia Neuro intact with longstanding right iliopsoas weakness and foot drop Transfused yesterday. Plan: follow h/h Abx per ID DC planning PT/OT as tolerated Dr. Garcia saw pt today and changed his dressing Subjective: out of bed in bedside chair eating breakfast No overnight issues other than multiple dressing changes Objective: NEURO Right iliopsoas weakness- longstanding right foot drop - longstanding No new weakness or tingling DAVID RIght:450 ml DAVID Left: 300 ml and leaking from skin site Neurosurgery Physical Exam - Vitals, I&O, Labs I and O 12/11/16 12/12/16 12/13/16 05:59 05:59 05:59 Intake Total 5150 2550 Output Total 1725 420 Balance 3425 2130 Intake: Oral (ml) 2500 1250 IV Infused (ml) 1800 950 Ertapenem 1 gm In Ns 100 100 ml @ 200 mls/hr IV DAILY [facility] Rx#:[id number] NS W/ 20 KCl/L 1,000 ml @ 1500 750 75 mls/hr IV CONT [facility] Rx #:[id number] ceFAZolin 2 GM/DEXTROSE 200 100 ml @ 200 mls/hr IV Q8HRS [facility] Rx#:[id number] ceFAZolin 2 gm In D5w 100 200 ml @ 200 mls/hr IV Q8H [facility] Rx#:[id number] Packed Red Blood Cells ( 850 350 ml) Output: Urine (ml) 975 300 Urinal 975 300 Wound Drainage (ml) 750 120 Right Back Carrillo Moe 450 80 Left Back Carrillo Moe 300 40 Other: Intake Quantity Yes Sufficient Number of Voids Urinal 1 3 Number of Stools Urinal 1 Microbiology 12/09/16 17:25 Blood Culture - Final Blood Staphylococcus Aureus Blood Panel (PCR) - Final S.aureus Methicillin Suscept. 12/09/16 17:45 Blood Culture - Final Blood Staphylococcus Aureus 12/09/16 18:40 Gram Stain - Final Back - Eswab 12/09/16 16:42 Gram Stain - Final Back - Swab Wound Culture - Final S.aureus Methicillin Suscept. Vital Signs Temp Pulse Resp BP Pulse Ox 37.7 C 66 18 126/76 H 93 12/12/16 07:15 12/12/16 07:15 12/12/16 07:15 12/12/16 07:15 12/12/16 07:15 Laboratory Results 12/12/16 05:15 12/12/16 05:15 ICD10 Worksheet Patient Problems: Problems Problem Status Diagnosed Cervical stenosis of spinal canal Acute Fusion of lumbar spine Acute
[2016-12-12] MEDS: oxyCODONE IR 5 MG TAB PO PRN (11:30)
--- NOTE | 2016-12-12 13:20 | PCMIDPN ---
Assessment/Plan: Assessment/Plan: 1. Post operative deep lumbar back infection secondary to MSSa with bacteremia: - s/p I & D on 12/09/16. OP note reviewed. - Currently on Ancef for directive therapy. -Reviewed labs results with patient, daughter. -Awaiting for blood cx to be negative x 48 hours prior to picc line placement. Hopefully will be able to place tomorrow. -Long discussion with patient, and daughter regarding above treatment plans and options for Ancef (continuous infusion vs q8 dosing in the OP), lab monitoring, picc line (risks/benefits), ideal follow up, risks with prolonged travels with respect to transport of antibiotics, breakdown of surgical site etc. -He would like to think about all of this today and then let me know tomorrow if he wants continous infusions vs q8 to be set up. -we discussed about 8 weeks duration of therapy with chronic oral antibiotic suppression thereafter, and rationale for that etc. -All questions addressed. Meds Ancef 2g q8- # from surgery. Subjective: Low grade temp today. Feels well otherwise. Denies sob, cough, abd pain or diarrhea. having bowel movements, small volume. has numbness/tingling in ext but not new for patient. daughter present. Objective: Vital Signs Temp Pulse Resp BP Pulse Ox 36.7 C 61 14 122/63 H 97 12/12/16 12:26 12/12/16 12:26 12/12/16 12:26 12/12/16 12:26 12/12/16 12:26 Microbiology 12/09/16 17:25 Blood Culture - Final Blood Staphylococcus Aureus Blood Panel (PCR) - Final S.aureus Methicillin Suscept. 12/09/16 17:45 Blood Culture - Final Blood Staphylococcus Aureus 12/09/16 18:40 Gram Stain - Final Back - Eswab 12/09/16 16:42 Gram Stain - Final Back - Swab Wound Culture - Final S.aureus Methicillin Suscept. Laboratory Results 12/12/16 05:15 12/12/16 05:15 12/11/16 12/12/16 12/13/16 05:59 05:59 05:59 Intake Total 5150 2550 Output Total 1725 420 Balance 3425 2130 ESR 82 MM/HR (0-20) H 02/08/17 17:25 C-Reactive Protein 230.3 mg/L (<10.0) H 12/09/16 17:25 - Physical Exam General Appearance: alert, no apparent distress Respiratory: lungs clear Cardiac/Chest: regular rate, rhythm Abdomen: normal bowel sounds, non-tender, soft, No distended Back: other (dressing noted with [address] serosanguinous drainage present.) - Time Spent With Patient Time Spent with Patient: greater than 35 minutes Time Spent with Patient: Greater than 35 minutes spent on this patients care, greater than 50% of time spent counseling, educating, and coordinating care regarding the above mentioned plan. ICD10 Worksheet Patient Problems: Problems Problem Status Diagnosed Cervical stenosis of spinal canal Acute Fusion of lumbar spine Acute
[2016-12-12] MEDS: CYCLOBENZAPRINE 10 MG TAB PO PRN ×2 (15:03→21:14)
[2016-12-13] MEDS: ceFAZolin 2 GM in D5W 100 ML IV SCH ×3 (05:30→21:09)
[2016-12-13] MEDS: HYDROCODONE/APAP 10/325 TAB PO PRN ×2 (05:30→12:45)
[2016-12-13] MEDS: METHOCARBAMOL 750 MG TAB PO PRN ×2 (05:30→12:46)
[2016-12-13] MEDS: SENNOSIDES/DOCUSATE SODIUM TAB PO SCH ×2 (09:19→20:52)
[2016-12-13] MEDS: ENOXAPARIN 40 MG/0.4 ML SYR SC SCH (09:19)
[2016-12-13] MEDS: PANTOPRAZOLE SODIUM 40 MG TAB PO SCH (09:19)
[2016-12-13] MEDS: morphINE SR 15 MG TAB PO SCH ×2 (09:19→20:52)
--- NOTE | 2016-12-13 12:39 | NEUSURGPN ---
Date of Surgery: 12/09/16 Post Op Day: 4 Assessment/Plan: 71 yo male POD 4 s/p wound I&D: MSSA Bacteremia Neuro intact with longstanding right iliopsoas weakness and foot drop Transfused yesterday and H/H improved. Plan: follow h/h Abx per ID. PICC today DC planning PT/OT as tolerated COntinue both DAVID drains Subjective: lying in bed comfortable with occasional back pain with movement. feeling better in general Objective: LEft 4/5 DF/EHL right foot drop and iliopsoas weakness longstanding Urinary Catheter in Place: No Neurosurgery Physical Exam - Vitals, I&O, Labs I and O 12/12/16 12/13/16 12/14/16 05:59 05:59 05:59 Intake Total 2550 710 Output Total 420 1085 Balance 2130 -375 Intake: Oral (ml) 1250 500 IV Infused (ml) 950 210 NS W/ 20 KCl/L 1,000 ml @ 750 75 mls/hr IV CONT [facility] Rx #:[id number] ceFAZolin 2 gm In D5w 100 200 210 ml @ 200 mls/hr IV Q8H [facility] Rx#:[id number] Packed Red Blood Cells ( 350 ml) Output: Urine (ml) 300 1025 Urinal 300 850 Toilet 175 Wound Drainage (ml) 120 60 Right Back Carrillo Moe 80 60 Left Back Carrillo Moe 40 Other: Intake Quantity Yes Sufficient Number of Voids Urinal 3 1 Toilet 1 Number of Stools Urinal 1 1 Microbiology 12/09/16 17:25 Blood Culture - Final Blood Staphylococcus Aureus Blood Panel (PCR) - Final S.aureus Methicillin Suscept. 12/09/16 17:45 Blood Culture - Final Blood Staphylococcus Aureus Vital Signs Temp Pulse Resp BP Pulse Ox 37.2 C 66 14 132/62 H 100 12/12/16 23:20 12/13/16 08:00 12/13/16 08:00 12/13/16 08:00 12/13/16 08:00 Laboratory Results 12/12/16 05:15 12/12/16 05:15 ICD10 Worksheet Patient Problems: Problems Problem Status Diagnosed Cervical stenosis of spinal canal Acute Fusion of lumbar spine Acute
[2016-12-13] MEDS ORDERED: ALTEPLASE 2 MG VIAL IVP PRN (13:48)
--- NOTE | 2016-12-13 14:59 | PCMIDPN ---
Assessment/Plan: Assessment/Plan: 1. Post operative deep lumbar back infection secondary to MSSa with bacteremia: - s/p I & D on 12/09/16. OP note reviewed. - Currently on Ancef for directive therapy. -Reviewed labs results with patient, daughter. -blood cx remain ngtd. picc line ordered. -Long discussion yesterday with patient, and daughter regarding above treatment plans and options for Ancef (continuous infusion vs q8 dosing in the OP), lab monitoring, picc line (risks/benefits), ideal follow up, risks with prolonged travels with respect to transport of antibiotics, breakdown of surgical site etc. -He would like to do q8 dosing in the OP -we discussed about 8 weeks duration of therapy with chronic oral antibiotic suppression thereafter, and rationale for that etc. -All questions addressed. Meds Ancef 2g q8- #/ from surgery. Subjective: afebrile. denies sob. off o2 at present. abd feels full. no diarrhea. passing gas. c/o some left LE weakness today. asaf drains present. Objective: Vital Signs Temp Pulse Resp BP Pulse Ox 37.2 C 66 14 132/62 H 100 12/12/16 23:20 12/13/16 08:00 12/13/16 08:00 12/13/16 08:00 12/13/16 08:00 Laboratory Results 12/12/16 05:15 12/12/16 05:15 12/12/16 12/13/16 12/14/16 05:59 05:59 05:59 Intake Total 2550 710 Output Total 420 1085 Balance 2130 -375 ESR 82 MM/HR (0-20) H 12/09/16 17:25 C-Reactive Protein 230.3 mg/L (<10.0) H 12/09/16 17:25 - Physical Exam General Appearance: alert, no apparent distress Respiratory: lungs clear Cardiac/Chest: regular rate, rhythm Extremities: No swelling Abdomen: non-tender, soft, distended Back: other (asaf drains x 2 with serosanguinous drainage) ICD10 Worksheet Patient Problems: Problems Problem Status Diagnosed Cervical stenosis of spinal canal Acute Fusion of lumbar spine Acute
[2016-12-13] MEDS ORDERED: IOPAMIDOL (ISOVUE-300) 100 ML BTL IV ONE (15:11)
[2016-12-13] MEDS: ACETAMINOPHEN 325 MG TAB PO PRN (17:31)
--- NOTE | 2016-12-13 17:49 | CT ---
CT Scan of the Lumbar Spine With intravenous Contrast With Multiplanar Reconstructions 2016 at 1614 Hours Clinical Indications: Recent lumbar surgery, left leg weakness. Comparison: None. Technique: Thinly collimated multidetector helical CT imaging of the lumbar spine was performed with contrast after intravenous administration of 100 mL Isovue-300 contrast. Multiplanar reconstructions reviewed on [employer] workstation and performed to better evaluate alignment. Dose reduction techniques were utilized. Findings: Bilateral L2, L3, L4, and L5 transpedicular screws and fusion rods. Previous L1-L2 and L5- S1 diskectomy with interbody disk fusion hardware. Previous L2-L3 and L3-L4 bony fusion. Bilateral L5 paraspinal drain is noted. No acute compression fractures. Mild T12 compression deformity appears old. No destructive osseous le sions. T11-T12: Severe degenerative disk disease with vacuum disk phenomena, circumferential disk bulge and osteophytes, and moderate bilateral facet arthropathy, resulting in moderate to severe central canal stenosis and moderate to severe bilateral neural foraminal stenosis, left worse than right. T12-L1: Mild degenerative disk disease with ventral osteophytes, resulting in mild central canal sten osis without neural foraminal stenosis. L1-L2: Moderate degenerative disk disease with circumferential disk bulge and osteophytes and moderat e bilateral facet arthropathy, resulting in moderate central canal stenosis, mild degenerative retrol isthesis, and mild to moderate bilateral neural foraminal stenosis. L2-L3: Previous diskectomy and right hemilaminectomy with moderate left facet arthropathy and a large 8 mm dorsal osteophyte from the L2-L3 level, especially inferoposterior aspect of the L2 vertebral b kevin level, resulting in severe central canal stenosis with AP diameter of the central canal approxima tely 6 mm and mild bilateral neural foraminal stenosis. L3-L4: Probable previous diskectomy and bony fusion with circumferential osteophytes and moderate raul ateral facet arthropathy, resulting in moderate to severe central canal stenosis without neural alaina inal stenosis. L4-L5: Probable previous anterior diskectomy with circumferential osteophytes and moderate bilateral facet arthropathy, resulting in moderate to severe central canal stenosis without neural foraminal st enosis. L5-S1: Recent right hemilaminectomy and diskectomy with moderate left facet arthropathy and partial r ight facetectomy. Minimal degenerative retrolisthesis. No evidence of bony central canal stenosis. Ho mellisa, the thecal sac is not well visualized at this level. No bony central canal stenosis. Suggestio n of mild bilateral neural foraminal stenosis secondary to facet arthropathy and degenerative retroli sthesis. Bilateral posterior paraspinal drain is noted with left paraspinal bony fusion masses. Impression: 1. L5-S1: Diskectomy and right hemilaminectomy without evidence of bony central canal stenosis. Howev er, the thecal sac is not well visualized. 2. L2-L3: Severe central canal stenosis secondary to large dorsal osteophyte and bilateral facet arth ropathy. 3. L3-L4 and L4-L5: Moderate to severe central canal stenosis secondary to circumferential osteophyte s and moderate bilateral facet arthropathy. Findings and recommendations discussed with Diogo Martínez PA-C at 1630 hours on December 13, 2016. Final report concurs with initial preliminary interpretation.
[2016-12-14] MEDS: ceFAZolin 2 GM in D5W 100 ML IV SCH ×3 (05:13→21:07)
[2016-12-14] MEDS: ACETAMINOPHEN 325 MG TAB PO PRN (05:18)
[2016-12-14] MEDS: morphINE SR 15 MG TAB PO SCH ×2 (08:31→21:07)
[2016-12-14] MEDS: SENNOSIDES/DOCUSATE SODIUM TAB PO SCH ×2 (08:31→21:07)
[2016-12-14] MEDS: ENOXAPARIN 40 MG/0.4 ML SYR SC SCH (08:32)
[2016-12-14] MEDS: PANTOPRAZOLE SODIUM 40 MG TAB PO SCH (08:32)
--- NOTE | 2016-12-14 10:16 | PCMIDPN ---
Assessment/Plan: Assessment: Lumbar surgical site infection secondary to methicillin sensitive Staph aureus. Bacteremia as well. Repeat blood cultures from 12/11/2016 are no growth to date. Will await 72 hours of clearance before obtaining PICC line. Patient's lumbar incision is still boggy and leaking serous fluid. Weakness in the lower extremity is gone this morning. Will review CT scan with Radiology. Does not appear to be infectious fluid collection causing compression. Plan: 1. Continue cefazolin. 2. Obtain PICC line tomorrow provided the blood cultures stay negative. 3. Anticipate 8 weeks of antibiotic therapy followed by oral antibiotic suppression. 12/14/16 10:12 Subjective: Patient is resting in his chair in his hospital room. States that the lower extremity weakness is much improved this morning verses yesterday. Has already been ambulating around his room somewhat today. No fevers or chills. Objective: Cefazolin # 6 Vital Signs Temp Pulse Resp BP Pulse Ox 36.7 C 63 16 147/73 H 96 12/14/16 08:00 12/14/16 08:00 12/14/16 08:00 12/14/16 08:00 12/14/16 08:00 Laboratory Results 12/12/16 05:15 12/12/16 05:15 12/13/16 12/14/16 12/15/16 05:59 05:59 05:59 Intake Total 710 400 Output Total 1085 1400 540 Balance -375 -1000 -540 ESR 82 MM/HR (0-20) H 12/09/16 17:25 C-Reactive Protein 230.3 mg/L (<10.0) H 12/09/16 17:25 - Physical Exam General Appearance: WD/WN, alert, no apparent distress, non-toxic Respiratory: lungs clear, normal breath sounds, No respiratory distress Cardiac/Chest: regular rate, rhythm, No tachycardia, No systolic murmur Extremities: non-tender, normal inspection Back: No normal inspection (Midline lumbar incision with some induration and bogginess. Leaking small amounts of serous fluid. Minimal erythema surrounding.), No CVA tenderness Skin: normal color, warm/dry, No rash Neuro/Psych: alert, normal mood/affect, oriented x 3 ICD10 Worksheet Patient Problems: Problems Problem Status Diagnosed Cervical stenosis of spinal canal Acute Fusion of lumbar spine Acute
--- NOTE | 2016-12-14 10:39 | SOAPPROG ---
SOAP Progress Note Assessment/Plan: Assessment:71 yo M POD #5 washout of lumbar wound Plan: stable gram + cocci bacteremia, on ancef anemia, transfused 2 units prbc. will watch for now DAVID x 2 PT/OT scd/violette/lovenox for dvt prophylaxis please call with neuro changes patient seen by Dr Gomez 12/10/16 07:08 12/14/16 10:36 Subjective: back pain improving, some leg weakness, yesterday while walking since leg buckled and gave out. Patient in shower this am Objective: Vital Signs Temp Pulse Resp BP Pulse Ox 36.7 C 63 16 147/73 H 96 12/14/16 08:00 12/14/16 08:00 12/14/16 08:00 12/14/16 08:00 12/14/16 08:00 Laboratory Results 12/12/16 05:15 12/12/16 05:15 12/13/16 12/14/16 12/15/16 05:59 05:59 05:59 Intake Total 710 400 Output Total 1085 1400 540 Balance -375 -1000 -540 PT 17.0 SEC (12.0-15.0) H 12/09/16 17:25 INR 1.39 (0.83-1.16) H 12/09/16 17:25 AAOx4, +FC PERRL, EOMI, no facial droop 5/5 except right DF 0/5, right psoas 4/5 (chronic) + light touch C/D/I ICD10 Worksheet Patient Problems: Problems Problem Status Diagnosed Cervical stenosis of spinal canal Acute Fusion of lumbar spine Acute
[2016-12-14] MEDS: HYDROCODONE/APAP 10/325 TAB PO PRN ×2 (13:11→17:35)
[2016-12-14] MEDS: CYCLOBENZAPRINE 10 MG TAB PO PRN ×2 (13:12→17:35)
[2016-12-15] MEDS: ceFAZolin 2 GM in D5W 100 ML IV SCH ×3 (07:26→21:43)
--- NOTE | 2016-12-15 07:54 | SOAPPROG ---
SOAP Progress Note Assessment/Plan: Assessment:71 yo M POD #6 washout of lumbar wound for MSSA wound infection Plan: stable, wound with still some drainage, keep drain in place for now gram + cocci bacteremia, on ancef anemia, transfused 2 units prbc. 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 Leg weakness improved yesterday. Objective: Vital Signs Temp Pulse Resp BP Pulse Ox 36.9 C 98 18 152/81 H 96 12/14/16 22:59 12/14/16 22:59 12/14/16 22:59 12/14/16 22:59 12/14/16 22:59 Microbiology 12/09/16 18:40 Gram Stain - Final Back - Eswab Laboratory Results 12/12/16 05:15 12/12/16 05:15 12/14/16 12/15/16 12/16/16 05:59 05:59 05:59 Intake Total 400 850 Output Total 1400 570 Balance -1000 280 PT 17.0 SEC (12.0-15.0) H 12/09/16 17:25 INR 1.39 (0.83-1.16) H 12/09/16 17:25 AAOX4, +FC PERRL, EOMI, no facial droop 5/5 except right 0/5, right psoas 4/5 (both chronic) + light touch C/D/I with some drainage on dressing. ICD10 Worksheet Patient Problems: Problems Problem Status Onset Cervical stenosis of spinal canal Acute Fusion of lumbar spine Acute
[2016-12-15] MEDS: SENNOSIDES/DOCUSATE SODIUM TAB PO SCH ×2 (09:28→20:01)
[2016-12-15] MEDS: PANTOPRAZOLE SODIUM 40 MG TAB PO SCH (09:28)
[2016-12-15] MEDS: ENOXAPARIN 40 MG/0.4 ML SYR SC SCH (09:28)
[2016-12-15] MEDS: morphINE SR 15 MG TAB PO SCH ×2 (09:28→20:01)
--- NOTE | 2016-12-15 14:10 | PCMIDPN ---
Assessment/Plan: Assessment/Plan: 1. Post operative deep lumbar back infection secondary to MSSa with bacteremia: - s/p I & D on 12/09/16. OP note reviewed. - Currently on Ancef for directive therapy. -Reviewed labs results with patient, daughter. -blood cx remain ngtd. picc line ordered. -He would like to do q8 dosing in the OP -Plan is for 8 weeks duration of therapy with chronic oral antibiotic suppression thereafter - Lives in [place]. NEeds close follow up there. -All questions addressed. Meds Ancef 2g q8- #7/56 from surgery. Subjective: afebrile. less Left LE weakness overall. still wit drainage from back wound. Less drainage from ASAF drains. denies sob. daughter present. Objective: Vital Signs Temp Pulse Resp BP Pulse Ox 36.8 C 68 16 148/85 H 96 12/15/16 12:00 12/15/16 12:00 12/15/16 12:00 12/15/16 12:00 12/15/16 12:00 Microbiology 12/09/16 18:40 Gram Stain - Final Back - Eswab Laboratory Results 12/12/16 05:15 12/12/16 05:15 12/14/16 12/15/16 12/16/16 05:59 05:59 05:59 Intake Total 400 850 Output Total 1400 570 20 Balance -1000 280 -20 ESR 82 MM/HR (0-20) H 12/09/16 17:25 C-Reactive Protein 230.3 mg/L (<10.0) H 12/09/16 17:25 - Physical Exam General Appearance: alert, no apparent distress Respiratory: lungs clear Cardiac/Chest: regular rate, rhythm Extremities: swelling (mild) Back: other (asaf drains noted) ICD10 Worksheet Patient Problems: Problems Problem Status Onset Cervical stenosis of spinal canal Acute Fusion of lumbar spine Acute
[2016-12-15] MEDS: HYDROCODONE/APAP 10/325 TAB PO PRN ×2 (14:36→21:45)
[2016-12-15] MEDS: CYCLOBENZAPRINE 10 MG TAB PO PRN ×2 (14:37→21:45)
[2016-12-15] MEDS: METHOCARBAMOL 750 MG TAB PO PRN (20:01)
[2016-12-16] MEDS: ceFAZolin 2 GM in D5W 100 ML IV SCH ×3 (05:45→21:00)
[2016-12-16] MEDS: CYCLOBENZAPRINE 10 MG TAB PO PRN ×2 (05:45→15:07)
[2016-12-16] MEDS: HYDROCODONE/APAP 10/325 TAB PO PRN ×5 (05:45→21:00)
--- NOTE | 2016-12-16 07:57 | SOAPPROG ---
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 No new weakness. Objective: Vital Signs Temp Pulse Resp BP Pulse Ox 36.9 C 69 16 140/70 H 91 L 12/16/16 07:54 12/16/16 07:54 12/16/16 07:54 12/16/16 07:54 12/16/16 07:54 Microbiology 12/09/16 18:40 Gram Stain - Final Back - Eswab Laboratory Results 12/12/16 05:15 12/12/16 05:15 12/15/16 12/16/16 12/17/16 05:59 05:59 05:59 Intake Total 850 2320 Output Total 570 520 Balance 280 1800 PT 17.0 SEC (12.0-15.0) H 12/09/16 17:25 INR 1.39 (0.83-1.16) H 12/09/16 17:25 AAOX4, +FC PERRL, EOMI, no facial droop 5/5 excpet right DF/EHL 0/5 and right psoas 4/5 (chronic) + light touch C/D/I but some drainage at lower portion of incision ICD10 Worksheet Patient Problems: Problems Problem Status Onset Cervical stenosis of spinal canal Acute Fusion of lumbar spine Acute
[2016-12-16] MEDS: PANTOPRAZOLE SODIUM 40 MG TAB PO SCH (08:14)
[2016-12-16] MEDS: SENNOSIDES/DOCUSATE SODIUM TAB PO SCH ×2 (08:14→21:00)
[2016-12-16] MEDS: morphINE SR 15 MG TAB PO SCH ×2 (08:15→21:00)
[2016-12-16] MEDS: ENOXAPARIN 40 MG/0.4 ML SYR SC SCH (08:15)
--- NOTE | 2016-12-16 09:01 | PDIAF ---
- Diagnosis Diagnosis: lumbar spine infection Code Status: Full Code - Medication Management Discharge Medications: Medications to Continue on Transfer RX: Enoxaparin [Lovenox 40 MG (*)] 40 mg SC DAILY #0 syr 12/01/16 [Last Taken Unknown] RX: Methocarbamol [Robaxin 750 mg (*)] 750 mg PO QID PRN #0 tab 12/01/16 [Last Taken Unknown] RX: morphINE SR [Ms Contin/Oramorph 15 mg (*)] 15 mg PO BID #0 tab 12/01/16 [ Last Taken Unknown] RX: oxyCODONE IR [Oxycodone Ir (*)] 5 mg PO Q3HRS PRN #0 tab 12/01/16 [Last Taken Unknown] Ascorbic Acid [Vitamin C 500 mg (*)] 500 mg PO DAILY 12/09/16 [Last Taken Unknown] Bisacodyl [Dulcolax] 10 mg RC DAILY PRN 12/09/16 [Last Taken Unknown] Ferrous Sulfate [Ferrous Sulf 325 MG (*)] 325 mg PO DAILY 12/09/16 [Last Taken Unknown] Omeprazole Magnesium [Prilosec Otc] 20 mg PO DAILY 12/09/16 [Last Taken Unknown] Ondansetron Odt [Zofran Odt 4 mg (*)] 4 mg PO Q4 PRN 12/09/16 [Last Taken Unknown] Polyethylene Glycol 3350 [Miralax 17 gm (*)] 17 gm PO DAILY PRN 12/09/16 [Last Taken Unknown] RX: Acetaminophen [Tylenol 325mg (*)] 650 mg PO TID 12/09/16 [Last Taken Unknown ] RX: Herbals/Supplements -Info Only 1 ea PO DAILY 12/09/16 [Last Taken Unknown] [facility] Antibiotics: cefazolin 2 g IV q 8 hours [facility] Antibiotic Stop Date: 02/03/17 Discharge Medications: Refer to the Discharge Home Medication list for PRN reason. PICC Care - Routine: Yes - Orders Services needed: Registered Nurse - Labs/Radiology CBC Date: 12/21/16 (weekly) CMP Date: 12/21/16 (weekly) Call or Fax Lab and Imaging Results to: Dr. Jimenez - [place] [facility] [place], [place] - Follow Up Care Current Providers and Referrals: [place] STATE,. [Primary Care Provider] -
[2016-12-16] MEDS: METHOCARBAMOL 750 MG TAB PO PRN (11:51)
--- NOTE | 2016-12-16 13:37 | WOCRNPDOC ---
WOCRN Advanced Assessment Note - Skin Integrity Problem, Advanced Assess Lower Back Surgical Wound/Incision Skin Integrity Problem Comment: Received consult request from verification engineer Jenaro regarding irritation and denudement of patient's stephani-wound skin. Due to frequent dressing changes, the paper tape used to secure the gauze over the wound is stripping the top layers of the skin, causing irritation and breakdown. I changed the dressing to a Tegaderm Superabsorber dressing, which should reduce the number of dressing changes. In addition, I supplied patient w / Silicone-based tape, which is easier to remove and gentler on the skin.
[2016-12-17 04:26] VITALS: RESP 16
[2016-12-17] MEDS: HYDROCODONE/APAP 10/325 TAB PO PRN ×3 (05:26→16:29)
[2016-12-17] MEDS: ceFAZolin 2 GM in D5W 100 ML IV SCH ×2 (05:27→13:53)
--- NOTE | 2016-12-17 08:18 | SOAPPROG ---
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 Finegoldia Magna 12/11/16 08:00 Blood Culture - Final Blood 12/11/16 07:45 Blood Culture - Final Blood Laboratory Results 12/12/16 05:15 12/12/16 05:15 12/16/16 12/17/16 12/18/16 05:59 05:59 05:59 Intake Total 2320 1130 Output Total 520 930 Balance 1800 200 PT 17.0 SEC (12.0-15.0) H 12/09/16 17:25 INR 1.39 (0.83-1.16) H 12/09/16 17:25 AAOX4, +FC PERRL, EOMI, no facial droop 5/5 except right DF 0/5, psoas 4/5 + light touch C/D/I but with some drainage at bottom of incision ICD10 Worksheet Patient Problems: Problems Problem Status Onset Cervical stenosis of spinal canal Acute Fusion of lumbar spine Acute
[2016-12-17] MEDS: PANTOPRAZOLE SODIUM 40 MG TAB PO SCH (08:40)
[2016-12-17] MEDS: SENNOSIDES/DOCUSATE SODIUM TAB PO SCH (08:40)
[2016-12-17] MEDS: ENOXAPARIN 40 MG/0.4 ML SYR SC SCH (08:41)
[2016-12-17] MEDS: morphINE SR 15 MG TAB PO SCH (08:41)
[2016-12-17] MEDS: CYCLOBENZAPRINE 10 MG TAB PO PRN ×2 (11:38→16:29)
[2016-12-17 11:42] VITALS: BP 149/82; PULSE 81; TEMP 98.4; O2SAT 92
--- NOTE | 2016-12-17 13:48 | PDIAF ---
- Diagnosis Diagnosis: lumbar spine infection Code Status: Full Code - Medication Management Discharge Medications: Medications to Continue on Transfer Acetaminophen [Tylenol 325mg (*)] 650 mg PO TID 12/09/16 [Last Taken Unknown] Ascorbic Acid [Vitamin C 500 mg (*)] 500 mg PO DAILY 12/09/16 [Last Taken Unknown] Ferrous Sulfate [Ferrous Sulf 325 MG (*)] 325 mg PO DAILY 12/09/16 [Last Taken Unknown] Herbals/Supplements -Info Only 1 ea PO DAILY 12/09/16 [Last Taken Unknown] Omeprazole Magnesium [Prilosec Otc] 20 mg PO DAILY 12/09/16 [Last Taken Unknown] Polyethylene Glycol 3350 [Miralax 17 gm (*)] 17 gm PO DAILY PRN 12/09/16 [Last Taken Unknown] Cyclobenzaprine [Flexeril 10 MG (*)] 10 mg PO TID PRN #0 tab 12/17/16 [Last Taken Unknown] HYDROcodone/APAP 10/325 [[place] 10/325 (*)] 1 - 2 tab PO Q6HRS PRN #0 tab [Last Taken Unknown] Methocarbamol [Robaxin 750 mg (*)] 750 mg PO QID PRN #0 tab 12/17/16 [Last Taken Unknown] ceFAZolin [Ancef] 2 gm IV Q8H #0 vial 12/17/16 [Last Taken Unknown] [facility] Antibiotics: cefazolin 2 g IV q 8 hours [employer] Antibiotic Stop Date: 02/03/17 Discharge Medications: Refer to the Discharge Home Medication list for PRN reason. PICC Care - Routine: Yes - Orders Services needed: Home Care, Registered Nurse Home Care Face to Face: I certify that this patient was under my care and that I had the required [id number] encounter meeting the encounter requirements on the discharge day. My findings support the fact that the patient is homebound as defined in CMS Chapter 7 Medicare Benefits Manual 30.1.1, The condition of the patient is such that there exists a normal inability to leave home and consequently, leaving home would require a considerable and taxing effort. Diet Recommendation: no restrictions on diet Diet Texture: Regular Texture Diet Additional: Keep DAVID in place, call when DAVID out put is < 5 ml for 2 days in a row. - Labs/Radiology CBC Date: 12/21/16 (weekly) CMP Date: 12/21/16 (weekly) Call or Fax Lab and Imaging Results to: Dr. Jimenez - [place] [facility] [place], [place] - Follow Up Care Current Providers and Referrals: IN STATE,. [Primary Care Provider] -
--- NOTE | 2016-12-17 17:41 | PCMIDPN ---
Assessment/Plan: Assessment: Lumbar surgical site infection secondary to methicillin sensitive Staph aureus. Bacteremia as well. Repeat blood cultures from 12/11/2016 are negative. PICC line has been obtained. Patient's lumbar incision is still boggy and leaking serous fluid. Awaiting approval by [place] [facility] [place] system for his home IV antibiotics. Plan: 1. Continue cefazolin. 2. Anticipate 8 weeks of antibiotic therapy followed by oral antibiotic suppression. 12/17/16 17:40 Subjective: Patient is resting comfortably in his hospital bed. He is somewhat frustrated that the arrangements through the [facility] in [place] or taking so long. Presently we are awaiting a contractor prove will for the [place] to pay the home IV antibiotic company in [place] to dispense his medications. At this point we are not able to let him leave the hospital without assurance is that he will continue to get treatment. Objective: Cefazolin # 8 Vital Signs Temp Pulse Resp BP Pulse Ox 36.9 C 81 16 149/82 H 92 12/17/16 11:41 12/17/16 11:41 12/17/16 11:41 12/17/16 11:41 12/17/16 11:41 Microbiology 12/09/16 18:40 Gram Stain - Final Back - Eswab 12/11/16 08:00 Blood Culture - Final Blood 12/11/16 07:45 Blood Culture - Final Blood Laboratory Results 12/12/16 05:15 12/12/16 05:15 12/16/16 12/17/16 12/18/16 05:59 05:59 05:59 Intake Total 2320 1130 Output Total 520 930 Balance 1800 200 ESR 82 MM/HR (0-20) H 12/09/16 17:25 C-Reactive Protein 230.3 mg/L (<10.0) H 12/09/16 17:25 - Physical Exam General Appearance: WD/WN, alert, no apparent distress, non-toxic Respiratory: lungs clear, normal breath sounds, No respiratory distress Cardiac/Chest: regular rate, rhythm, No tachycardia Skin: normal color, warm/dry, No rash Neuro/Psych: alert, normal mood/affect, oriented x 3 ICD10 Worksheet Patient Problems: Problems Problem Status Onset Cervical stenosis of spinal canal Acute Fusion of lumbar spine Acute
== END 2016-12-17 16:36 | disposition home or self-care (01) | DRG 858 ==
LOC: F3N 16:49
PROVIDERS: ADMIT Neurological Surgery; ATTEND Neurological Surgery
PROC: 0JB70ZZ Excision of Back Subcutaneous Tissue and Fascia, Open Approach (ICD-10-PCS; principal; 2016-12-09 17:56)
PROC: 0J9700Z Drainage of Back Subcutaneous Tissue and Fascia with Drainage Device, Open Approach (ICD-10-PCS; principal; 2016-12-09 17:56)
PROC: 30233N1 Transfusion of Nonautologous Red Blood Cells into Peripheral Vein, Percutaneous Approach (ICD-10-PCS; 2016-12-10)
PROC: 02HV33Z Insertion of Infusion Device into Superior Vena Cava, Percutaneous Approach (ICD-10-PCS; 2016-12-15)
DX: T81.4XXA Infection following a procedure, initial encounter (principal); B95.61 Methicillin susceptible Staphylococcus aureus infection as the cause of diseases classified elsewhere; Z95.0 Presence of cardiac pacemaker; E66.9 Obesity, unspecified; Z98.1 Arthrodesis status
CPT/HCPCS: 86870-90; 86905-90; 86922-90; 97110-GP; 97116-GP; 97161-GP; 97165-GO; 97530-GO; 97530-GP; 97535-GO; 99001-90; C1751; G8978-GP-CJ; G8979-GP-CI; J0690; J1335; J1650; J2001; J2250; J2704; J2765; J3010; J3370; P9016; Q9967